=== PATIENT | female | born 1980 | race Caucasian/White ===

== ENCOUNTER 2017-07-06 05:48 | Day surgery (SDC) | payer MEDICAID, OTHER ==
[~2017-07-06] VITALS: Ht 160 cm; Wt 75.8 kg
[~2017-07-06 05:48] MED LIST: ASPI-650 PO; BENA40TA41 PO; CALC-649 PO
[2017-07-06 06:49] VITALS: Ht 160 cm; Wt 75.8 kg
[2017-07-06] MEDS ORDERED: IBUPROFEN (06:54)
[2017-07-06 07:19] VITALS: BP 159/81; PULSE 57; RESP 12
--- NOTE | 2017-07-06 07:52 | OPPN ---
Date/Time of Note Date/Time of Note DATE: 07/06/17 TIME: 07:51 Operative Report Preoperative Diagnosis Chronic heartburn Postoperative Diagnosis Gastritis with erosions Hiatal hernia Reflux esophagitis Operation/Procedure Performed Esophagogastroduodenoscopy and biopsy Provider: ALDO FRASER MD Anesthesia Type: moderate sedation Estimated blood loss: none Transfusion Required: no Specimens Gastric mucosal biopsy Grafts/Implants: none Complications: no ALDO FRASER MD Jul 06, 2017 07:52
[2017-07-06] MEDS ORDERED: FENTAnyl 50 MCG/ML VIAL ONE (07:58)
[2017-07-06] MEDS ORDERED: MIDAZOLAM 1 MG/ML 2 ML INJ ONE (07:58)
--- NOTE | 2017-07-06 09:09 | GILP ---
DATE OF PROCEDURE: 07/06/2017 PROCEDURE PERFORMED: Esophagogastroduodenoscopy and biopsy. SURGEON: Dara Nieves MD. PREOPERATIVE DIAGNOSIS: Chronic heartburn. POSTOPERATIVE DIAGNOSES: 1. Hiatal hernia. 2. Reflux esophagitis. 3. Gastritis with erosions. 4. Gastric mucosal biopsies were taken for Helicobacter pylori test. INDICATION: Ms. Korin Berman is a 36-year-old female patient who had chronic heartburn not responding to therapy. The patient was scheduled for endoscopic examination for further evaluation. The procedure and possible complications were well explained to the patient. The patient understood and consented to the procedure. DESCRIPTION OF PROCEDURE: Under the influence of fentanyl and Versed, the gastroscope was carefully introduced into the esophagus, and under direct vision, it was advanced to the stomach, into the pylorus, into the duodenal bulb, and descending duodenum. FINDINGS: Esophagus: Patient had hiatal hernia and reflux esophagitis. Stomach: She had gastritis with severe erosions. Gastric mucosal biopsies were taken for H pylori test. Duodenum was normal. She tolerated the procedure very well. There was no complication from the procedure. At the end of procedure, she was awake with stable vital signs and she was discharged home in the care of her family. IMPRESSION: Please see postop diagnoses. PLAN: 1. Omeprazole 40 mg p.o. in the morning. 2. Zantac 300 mg p.o. at bedtime. 3. Await Helicobacter pylori test report. Dictated By: MD ODALYS Keenan/andrés/james /Document#: [id number]
== END 2017-07-06 13:21 | disposition home or self-care (01) ==
LOC: GIL 05:48
PROVIDERS: ATTEND Internal Medicine Gastroenterology
DX: K44.9 Diaphragmatic hernia without obstruction or gangrene (principal); K21.0 Gastro-esophageal reflux disease with esophagitis; K29.60 Other gastritis without bleeding; I10 Essential (primary) hypertension
CPT/HCPCS: 43239; 84703; 87081; J2250; J3010; Z7610